=== PATIENT | male | born 1950 | race Caucasian/White ===

== ENCOUNTER 2017-12-26 12:30 | Inpatient (IN) | payer OTHER, MEDICARE ==
[~2017-12-26] VITALS: Ht 182.9 cm; Wt 102.2 kg
[~2017-12-26 12:30] MED LIST: AMLODIPINE BESYL5 MG PO; ATARAX10 MG PO; LYRICA75 MG PO; SERTRALINE HCL100 MG PO; TYLENOL EXTRA500 MG PO; ZANTAC150 MG PO
[2017-12-26 13:01] LABS: HEMATOCRIT 46.5 % (38.0-50.0); HEMOGLOBIN 16.9 G/DL (12.5-16.6); MCH 34.8 PG (29.0-34.0); MCHC 36.3 G/DL (30.0-36.0); MCV 95.7 FL (86-99); PLATELET COUNT 271 K/uL (156-360); RBC DIS.WIDTH-CV 12.1 % (11.8-14.6); RBC DIS.WIDTH-SD 42.8 % (39-53); RED BLOOD COUNT 4.86 M/uL (4.00-5.50); WHITE BLOOD COUNT 8.5 K/uL (4.1-10.2)
[2017-12-26 13:10] LABS: ALBUMIN 4.6 g/dL (3.2-4.8); CHLORIDE 102 mEq/L (99-109); POTASSIUM 4.6 mEq/L (3.7-5.4); SODIUM 135 mEq/L (136-147)
[2017-12-26 13:12] LABS: GLUCOSE 187 mg/dL (70-99)
[2017-12-26 13:14] LABS: TOTAL BILIRUBIN 1.5 mg/dL (0.0-1.0)
[2017-12-26 13:16] LABS: ALKALINE PHOSPHATASE 63 IU/L (3-129); CREATININE 1.7 mg/dL (0.6-1.3); GFR ESTIMATE (CALCULATED) 43 mL/min/ (58.99-99999)
[2017-12-26 13:17] LABS: UREA NITROGEN (BUN) 27 mg/dL (9-23)
[2017-12-26 13:18] LABS: AST (GOT) 72 IU/L (2-34)
[2017-12-26 13:19] LABS: ALT (GPT) 72 IU/L (3-49); LIPASE 12 U/L (1.0-51.0)
[2017-12-26 17:32] LABS: APPEARANCE SL.HAZY ((CLEAR)); BILIRUBIN NEGATIVE; BLOOD NEGATIVE; COLOR AMBER ((YELLOW)); GLUCOSE (STRIP) NEGATIVE; KETONES 5; LEUKOCYTES NEGATIVE; NITRITE NEGATIVE; PROTEIN (STRIP) 30; SPECIFIC GRAVITY 1.027 (1.000-1.030); UROBILINOGEN 0.2 MG/DL (0.2-1.0)
[2017-12-26 17:41] LABS: BACTERIA NONE SEEN /HPF; EPITHELIAL CELLS RARE /HPF; MUCUS TRACE /LPF; RED BLOOD CELLS 0-5 /HPF (0-5); UCUL ADDED? NO; WHITE BLOOD CELLS 0-5 /HPF (0-5)
[2017-12-26] MEDS ORDERED: MELOXICAM15 MG PO (18:03)
[2017-12-26] MEDS ORDERED: ESZOPICLONE1 MG PO (18:04)
[2017-12-26] MEDS ORDERED: ROSUVASTATIN CA20 MG PO (18:04)
[2017-12-26] MEDS ORDERED: ESOMEPRAZOLE MA40 MG PO (18:05)
[2017-12-26] MEDS ORDERED: ATARAX,VISTARIL25 MG PO (18:05)
[2017-12-26] MEDS ORDERED: DULOXETINE HCL30 MG PO (18:09)
[2017-12-26 20:39] VITALS: BP 137/91
[2017-12-26 23:50] VITALS: BP 108/64
[2017-12-27 06:11] LABS: HEMATOCRIT 41.5 % (38.0-50.0); MCH 34.8 PG (29.0-34.0); MCHC 35.2 G/DL (30.0-36.0); PLATELET COUNT 223 K/uL (156-360); RBC DIS.WIDTH-CV 12.5 % (11.8-14.6); RBC DIS.WIDTH-SD 45.5 % (39-53); RED BLOOD COUNT 4.19 M/uL (4.00-5.50); WHITE BLOOD COUNT 5.8 K/uL (4.1-10.2)
[2017-12-27 06:12] LABS: HEMOGLOBIN 14.6 G/DL (12.5-16.6)
[2017-12-27 06:14] LABS: ALBUMIN 3.9 G/DL (3.2-4.8); ALKALINE PHOSPHATASE 41 IU/L (3-129); ALT (GPT) 44 IU/L (3-49); AST (GOT) 40 IU/L (2-34); CHLORIDE 104 MEQ/L (99-109); DIRECT BILIRUBIN 0.2 mg/dL (0.0-0.3); POTASSIUM 4.6 MEQ/L (3.7-5.4); SODIUM 138 MEQ/L (136-147); TOTAL BILIRUBIN 0.8 MG/DL (0.0-1.0)
[2017-12-27 06:25] LABS: CREATININE 2.6 MG/DL (0.6-1.3); GFR ESTIMATE (CALCULATED) 26 mL/min/ (58.99-99999); GLUCOSE 110 mg/dL (70-99); UREA NITROGEN (BUN) 41 mg/dL (9-23)
[2017-12-27 06:39] LABS: C DIFF TOXIN NEGATIVE (NEGATIVE)
[2017-12-27 07:05] LABS: ABS NEUTROPHIL COUNT 3.8; ATYPICAL LYMPHOCYTE 9.8 %; BAND NEUTROPHILS 28.6 % (0-8.0); EOSINOPHIL ABS CT 0.1; EOSINOPHILS 0.9 % (0-5.0); LYMPHOCYTES 12.5 % (15.0-45.0); MONOCYTES 11.6 % (0-9.0); PLAT.SUFFICIENCY ADEQUATE; SEG.NEUTROPHILS 36.6 % (46.0-76.0)
[2017-12-27 07:35] VITALS: BP 115/66
[2017-12-27 15:47] VITALS: BP 129/77
[2017-12-27 23:38] VITALS: BP 126/74
[2017-12-28 06:38] LABS: CHLORIDE 107 MEQ/L (99-109); GFR ESTIMATE (CALCULATED) 49 mL/min/ (58.99-99999); GLUCOSE 101 mg/dL (70-99); POTASSIUM 4.6 MEQ/L (3.7-5.4); SODIUM 138 MEQ/L (136-147); UREA NITROGEN (BUN) 31 mg/dL (9-23)
[2017-12-28 06:42] LABS: CREATININE 1.5 MG/DL (0.6-1.3)
[2017-12-28 07:40] VITALS: BP 131/79
== END 2017-12-28 11:35 | disposition home or self-care (01) | DRG 389 ==
LOC: EME 12:30 → 5EAST 18:41 → EDOF 18:41 → ENRESERV 18:50 → 5EAST 20:13 → ENPENDDIS 12-28 → 5EAST 12-28 11:35
PROVIDERS: Hospitalist; Internal Medicine
DX: K56.600 Partial intestinal obstruction, unspecified as to cause (principal); N17.9 Acute kidney failure, unspecified; E86.0 Dehydration; E87.2 Acidosis; R74.0 Nonspecific elevation of levels of transaminase and lactic acid dehydrogenase [LDH]; R00.0 Tachycardia, unspecified; Z93.2 Ileostomy status; Z94.4 Liver transplant status; K51.90 Ulcerative colitis, unspecified, without complications; Z90.49 Acquired absence of other specified parts of digestive tract; I10 Essential (primary) hypertension; N40.0 Benign prostatic hyperplasia without lower urinary tract symptoms; F32.9 Major depressive disorder, single episode, unspecified
CPT/HCPCS: 74018; 74176; 80048; 80053; 80076; 81003; 82948; 83605; 83690; 85025; 85027; 87493; 99281; 99285; J1650; J2270; J2405; J7030; J7042; S0028